=== PATIENT | male | born 1995 | race Caucasian/White ===

== ENCOUNTER 2017-08-11 09:18 | Day surgery (SDC) | payer OTHER ==
[~2017-08-11] VITALS: Ht 167.6 cm; Wt 59.0 kg
[2017-08-11] MEDS ORDERED: ALPR1TAB2 PO (10:25)
[2017-08-11 10:33] LABS: BASOPHILS # (AUTO) 0.2 K/uL (0.00-0.22); BASOPHILS % (AUTO) 4.5 % (0.0-2.0); EOSINOPHILS # (AUTO) 0.2 K/uL (0-0.4); EOSINOPHILS % (AUTO) 3.8 % (0.0-4.0); HEMATOCRIT 46.8 % (36-52); HEMOGLOBIN 15.4 g/dL (12.0-18.0); LYMPHOCYTES # (AUTO) 0.6 K/uL (2.0-11.5); LYMPHOCYTES % (AUTO) 13.4 % (20.5-51.1); MEAN CORPUSCULAR HEMOGLOBIN 29 pg (27-31); MEAN CORPUSCULAR HGB CONC 33 g/dL (33-37); MEAN CORPUSCULAR VOLUME 89 fL (80-94); MONOCYTES # (AUTO) 0.4 K/uL (0.8-1.0); MONOCYTES % (AUTO) 8.5 % (1.7-9.3); NEUTROPHILS # (AUTO) 2.8 K/uL (1.8-7.7); NEUTROPHILS % (AUTO) 69.8 % (42.2-75.2); PLATELET COUNT (AUTO) 332 K/uL (140-450); RED BLOOD CELL COUNT(AUTO) 5.26 MIL/uL (4.20-6.10); RED CELL DISTRIBUTION WIDTH 12.1 % (11.6-13.7); WHITE BLOOD COUNT (AUTO) 4.3 K/uL (4.8-10.8)
[2017-08-11 10:49] LABS: ALBUMIN 4.4 g/dL (3.4-5.0); BILIRUBIN,DIRECT 0.1 mg/dL (0.0-0.3); TOTAL BILIRUBIN 0.6 mg/dL (0.0-1.0)
[2017-08-11 11:07] LABS: PROTHROMBIN TIME 10.8 secs (10.8-13.4)
[2017-08-11] MEDS ORDERED: LIDOCAINE 2% 1000 MG/50 ML VIAL INJ ONE (11:47)
[2017-08-11] MEDS ORDERED: MORPHINE SULFATE 2 MG/ML SYR IVP PRN (12:15)
[2017-08-11] MEDS ORDERED: MORPHINE SULFATE 4 MG/ML SYR ONE (12:25)
[2017-08-11] MEDS ORDERED: LORazepam 2 MG/ML VIAL IM PRN (14:00)
[2017-08-11] MEDS ORDERED: LORazepam 2 MG/ML VIAL ONE (14:10)
== END 2017-08-11 14:52 | disposition home or self-care (01) ==
LOC: MMU 09:18 → MDS 09:18
PROVIDERS: ATTEND Internal Medicine Gastroenterology
DX: R74.0 Nonspecific elevation of levels of transaminase and lactic acid dehydrogenase [LDH] (principal); R14.0 Abdominal distension (gaseous); F31.9 Bipolar disorder, unspecified; Z87.891 Personal history of nicotine dependence; M54.30 Sciatica, unspecified side; I10 Essential (primary) hypertension
CPT/HCPCS: 36415; 47000; 76942; 80076; 85025; 85610; 85730; J2001; J2060; J2270; Q0092